=== PATIENT | female | born 1960 | race American Indian/Alaskan Native ===

== ENCOUNTER 2016-08-11 07:38 | Outpatient (CLI) | payer BC ==
--- NOTE | 2016-08-11 09:01 | Mammography Report ---
DIAGNOSTIC RIGHT MAMMOGRAM AND TARGETED RIGHT BREAST ULTRASOUND: HISTORY: Recall for right nodular asymmetry. FINDINGS: Spot compression images confirm the presence of a circumscribed nodular asymmetry in the upper-outer quadrant measuring approximately 8 mm in diameter. Sonographic evaluation of this area demonstrates a slightly hyperechoic round lesion with circumscribed margins measuring 7.4 mm in diameter. There is no acoustic shadowing. IMPRESSION: Solid nodule at the 11:00 position, 12 cm from the nipple, with relatively benign imaging features. BI-RADS CATEGORY: 3 = Probably benign ACR BI-RADS MAMMOGRAPHIC CODES: 0 = Needs additional imaging evaluation; 1 = Negative; 2 = Benign; 3 = Probably benign; 4 = Suspicious; 5 = Malignant; 6 = Known biopsy-proven malignancy COMMENT: 1. Dense breast tissue, i.e., adenosis, fibrocystic changes, etc., may obscure an underlying neoplasm. 2. Approximately 10% of cancers are not detected with mammography. 3. A negative mammography report should not delay biopsy if a clinically suspicious mass is present. RECOMMENDATION: 6 month follow-up mammogram and ultrasound.
== END 2016-08-11 07:39 | disposition home or self-care (01) ==
LOC: MAMMO 07:38
PROVIDERS: ATTEND Internal Medicine
DX: N63 Unspecified lump in breast (principal); R92.2 Inconclusive mammogram
CPT/HCPCS: 76642; G0206

== ENCOUNTER 2017-06-06 07:59 | Outpatient (CLI) | payer OTHER ==
--- NOTE | 2017-06-06 09:08 | Mammography Report ---
RIGHT DIGITAL DIAGNOSTIC MAMMOGRAM with CAD: 06/06/17 07:59:00 CLINICAL: Follow-up circumscribed nodule. COMPARISON:08/11/16 FINDINGS: The breast is mostly fatty. Stable circumscribed right upper outer intraparenchymal lymph nodes. No mass, architectural distortion or suspicious calcifications. IMPRESSION: No mammographic evidence of malignancy.Benign upper outer intraparenchymal lymph nodes. BI-RADS CATEGORY: 2 -- Benign RECOMMENDATION: Return to routine mammographic screening. ACR BI-RADS MAMMOGRAPHIC CODES: 0 = Needs additional imaging evaluation; 1 = Negative; 2 = Benign; 3 = Probably benign; 4 = Suspicious; 5 = Malignant; 6 = Known biopsy-proven malignancy COMMENT: 1. Dense breast tissue, i.e., adenosis, fibrocystic changes, etc., may obscure an underlying neoplasm. 2. Approximately 10% of cancers are not detected with mammography. 3. A negative mammography report should not delay biopsy if a clinically suspicious mass is present. COMMENT: Patient follow-up letters are generated by our [employer] application.
== END 2017-06-06 08:00 | disposition home or self-care (01) ==
LOC: MAMMO 07:59
PROVIDERS: ATTEND Internal Medicine
DX: R92.2 Inconclusive mammogram (principal)
CPT/HCPCS: G0206-RT

== ENCOUNTER 2019-03-22 10:52 | Outpatient (CLI) | payer OTHER ==
--- NOTE | 2019-03-22 15:58 | Mammography Report ---
DIGITAL SCREENING MAMMOGRAM WITH CAD, 03/22/2019 INDICATION: Routine screening mammography. TECHNIQUE: Digital bilateral 2D mammography was obtained in the craniocaudal and mediolateral obliq ue projections. This examination was interpreted with the benefit of Computer-Aided Detection analysi s. COMPARISON: 06/06/2017 FINDINGS: Breast Density: The breasts are almost entirely fatty. There is no evidence of dominant mass, suspicious calcifications or architectural distortion in eithe r breast. IMPRESSION: No mammographic evidence of malignancy. Follow up recommendation: Routine yearly BI-RADS Category 1: Negative. A "normal" or negative report should not discourage follow up or biopsy of a clinically significant f inding. A written summary of these findings will be mailed to the patient. The patient will be entered into a mammography reporting system which will generate a reminder letter for the patient's next appointmen t at the appropriate interval. The [employer] recommends yearly mammograms starting at age 40 and continuing as l milana as a woman is in good health. Breast MRI is recommended for women with an approximate 20-25% or greater lifetime risk of breast cancer, including women with a strong family history of breast or ova destini cancer or who have been treated for Hodgkin's disease. Signer Name: Weston Barbosa MD Signed: 03/22/2019 3:53 PM Workstation Name: [id number]
== END 2019-03-22 10:53 | disposition home or self-care (01) ==
LOC: MAMMO 10:52
PROVIDERS: ATTEND Internal Medicine
DX: Z12.31 Encounter for screening mammogram for malignant neoplasm of breast (principal)
CPT/HCPCS: 77067

== ENCOUNTER 2020-07-13 10:52 | Outpatient (CLI) | payer OTHER ==
--- NOTE | 2020-07-13 16:03 | Mammography Report ---
DIGITAL SCREENING MAMMOGRAM WITH CAD, 07/13/2020 CLINICAL INFORMATION / INDICATION: Routine screening mammography. SCREENING MAMMO TECHNIQUE: Digital bilateral 2D mammography was obtained in the craniocaudal and mediolateral obliqu e projections. This examination was interpreted with the benefit of Computer-Aided Detection analysis . COMPARISON: 03/22/2019 and 06/06/2017 FINDINGS: Breast Density: The breasts are almost entirely fatty. No dominant mass, suspicious calcifications, or architectural distortion in either breast. Stable benign intramammary lymph nodes in the right breast. IMPRESSION: No mammographic evidence of malignancy. Follow up recommendation: Routine yearly BI-RADS Category 2: Benign. A "normal" or negative report should not discourage follow up or biopsy of a clinically significant f inding. A written summary of these findings will be mailed to the patient. The patient will be entered into a mammography reporting system which will generate a reminder letter for the patient's next appointmen t at the appropriate interval. The [employer] recommends yearly mammograms starting at age 40 and continuing as l milana as a woman is in good health. Breast MRI is recommended for women with an approximate 20-25% or greater lifetime risk of breast cancer, including women with a strong family history of breast or ova destini cancer or who have been treated for Hodgkin's disease. Signer Name: Bruce Andrade MD Signed: 07/13/2020 3:59 PM Workstation Name: [id number]
== END 2020-07-13 10:53 | disposition home or self-care (01) ==
LOC: MAMMO 10:52
PROVIDERS: ATTEND Internal Medicine
DX: Z12.31 Encounter for screening mammogram for malignant neoplasm of breast (principal)
CPT/HCPCS: 77067